=== PATIENT | male | born 1980 | race Two or more races ===

== ENCOUNTER 2022-01-04 09:26 | Emergency (ER) | payer OTHER ==
[~2022-01-04] VITALS: Ht 167.6 cm; Wt 71.2 kg
[~2022-01-04 09:26] MED LIST: OMEGA 3 500 SO1 EACH PO
== END 2022-01-04 14:48 | disposition home or self-care (01) ==
LOC: ER 09:26
DX: R42 Dizziness and giddiness (principal); Z20.822 Contact with and (suspected) exposure to COVID-19

== ENCOUNTER 2023-01-27 05:43 | Emergency (ER) | payer OTHER ==
[~2023-01-27] VITALS: Ht 167.6 cm; Wt 64.9 kg
== END 2023-01-27 10:43 | disposition home or self-care (01) ==
LOC: ER 05:43
PROVIDERS: General Practice
DX: R55 Syncope and collapse (principal); F10.929 Alcohol use, unspecified with intoxication, unspecified